=== PATIENT | male | born 1970 | race Caucasian/White ===

== ENCOUNTER 2020-01-24 16:47 | Emergency (ER) | payer BC, OTHER, SELFPAY ==
--- NOTE | ~2020-01-24 | XR_ITS ---
EXAMINATION: XR knee LT min 4V DATE: 01/24/2020 17:12 INDICATION: Left knee pain TECHNIQUE: Four views of the left knee were obtained. COMPARISON: None. FINDINGS: Alignment is normal. No fracture or osteochondral lesion. Joint spaces are normal with no e rosions. No joint effusion/synovitis. Soft tissues are unremarkable. IMPRESSION: 1. No acute osseous abnormality. Reviewed, dictated and finalized at location A.
[2020-01-24 17:15] VITALS: BP 140/82; PULSE 102; RESP 20; TEMP 37.6; O2SAT 97
--- NOTE | 2020-01-24 17:27 | ED.LOWEXIN ---
HPI - Extremity Injury (Lower) General Chief Complaint: Extremity Injury, Lower Stated Complaint: left knee pain Time Seen by Provider: 01/24/20 17:05 Source: patient Mode of arrival: ambulatory Limitations: no limitations History of Present Illness HPI Narrative: Leoncio Lozano is a 49 yo male with a PMH of HTN, low testosterone, low back pain, states that he fell and grandchildren's room a few hours ago and tweaked his left knee. Feels unstable, unable to lean forward without leg giving out Related Data Home Medications Medication Instructions Recorded Confirmed albuterol sulfate 2.5 mg INHALATION QID 10/12/19 01/24/20 clomiphene citrate 50 mg DAILY 10/12/19 01/24/20 hydrochlorothiazide 25 mg DAILY 10/12/19 01/24/20 lisinopril 30 mg DAILY 10/12/19 01/24/20 pantoprazole 40 mg PO DAILY 10/12/19 01/24/20 pregabalin 100 mg TID 10/12/19 01/24/20 aspirin 81 mg tablet,delayed 81 mg PO DAILY 10/17/19 01/24/20 release sildenafil 50 mg tablet 50 mg PO DAILY PRN 10/17/19 01/24/20 cyclobenzaprine 10 mg tablet 10 mg PO TID 11/26/19 01/24/20 hydrocodone 7.5 mg-acetaminophen 15 ml PO .Every Other Day. PRN ml 11/26/19 01/24/20 325 mg/15 mL oral solution Allergies Allergy/AdvReac Type Severity Reaction Status Date / Time melon Allergy Severe Swelling Verified 11/26/19 15:43 of Lip/Tongue/Throat walnut Allergy Severe Swelling Verified 11/26/19 15:43 of Lip/Tongue/Throat Review of Systems Review of Systems: Narrative: CONSTITUTIONAL: Denies fever, chills, sweats. EYES: Denies visual changes, redness, discharge. ENT: Denies rhinorrhea, congestion, sore throat, otalgia. CARDIOVASCULAR: Denies chest pain, palpitations, edema. RESPIRATORY: Denies dyspnea, wheezing, cough GASTROINTESTINAL: Denies abdominal pain, nausea, vomiting, diarrhea. GENITOURINARY: Denies dysuria, hematuria, abnormal discharge SKIN: Denies rash or itching. NEUROLOGIC: Denies numbness, or focal weakness. PSYCHIATRIC: Denies anxiety or depression. Lower extremity pain and instability PMFSH Past Medical History Medical History ADD (attention deficit disorder) Ankle fracture, right Asthma As a child but worsened after he started smoking Diastolic dysfunction Echocardiogram April 2019, with hyperdynamic left ventricle with EF of 79% DVT (deep venous thrombosis) 2005 following rotator cuff repair surgery Hepatic steatosis Noted on CT from November 2018, February 2019 an MRI from February 2019 Hypersomnolence Sleep study 2018 IBS (irritable bowel syndrome) Liver hemangioma CT and MRI February 2019 Low testosterone Obstructive sleep apnea Pneumonia Shingles Splenomegaly MRI 2019 Surgical History Surgical History H/O arthroscopic knee surgery Bilateral 2005 H/O repair of right rotator cuff Hx of tonsillectomy Social History Social History Social History: He served in the [employer]. He started working at [employer] September 2015 on the [employer] line. He lives at home with his and 2 small dogs. He has 5 children who are grown and relatively healthy. The patient has a 22 pack per year smoking history but still vapes. Smoking packs per day: 1 Smoking cigarettes per day: 20.0 Years smoked: 22 Smoking pack-years: 22.00 Smoking status: Former smoker Tobacco type: cigarettes Smokeless tobacco user: chewing tobacco Second hand tobacco smoke exposure: Yes Smoking end date: 02/07/15 Additional smoking assessment comments: still uses Juul Alcohol intake: never Substance use: never Gender identity (if verbalized by the patient): Male Spiritual care concerns: No Agree to blood products: Yes Comments At time of signature, I agree with nursing past medical, surgical, social and family history. There is no relevant family history pertinent to t
== END 2020-01-24 17:51 | disposition home or self-care (01) ==
PROVIDERS: Emergency Provider Nurse Practitioner; PCP Family Medicine
DX: S83.422A Sprain of lateral collateral ligament of left knee, initial encounter (principal); W19.XXXA Unspecified fall, initial encounter; J45.909 Unspecified asthma, uncomplicated; I10 Essential (primary) hypertension; G47.30 Sleep apnea, unspecified
CPT/HCPCS: 73564; 99213; G0463

== ENCOUNTER 2020-02-16 10:02 | Emergency (ER) | payer BC, OTHER, SELFPAY ==
--- NOTE | ~2020-02-16 | XR_ITS ---
EXAMINATION: XR chest 2V DATE: 02/16/2020 10:33 INDICATION: Cough and shortness of breath. TECHNIQUE: Frontal and lateral views of the chest were obtained. COMPARISON: Chest 2 views 09/25/2019, chest CT 09/26/2019 FINDINGS: The chest demonstrates clear lungs without pneumonia, pleural effusion, or pneumothorax. Th e heart size is normal. Epidural electrodes are noted. IMPRESSION: 1. No acute cardiopulmonary disease. Reviewed, dictated and finalized at location A.
[2020-02-16 10:14] VITALS: BP 108/65; PULSE 99; RESP 20; TEMP 37.3; O2SAT 99
--- NOTE | 2020-02-16 10:16 | ED.URI ---
HPI - URI/Sore Throat General Chief Complaint: Upper Respiratory Infection Stated Complaint: Breathing Problem Time Seen by Provider: 02/16/20 10:16 Source: patient and RN notes reviewed History of Present Illness HPI Narrative: Patient is a 49-year-old male that presents the urgent care with complaints of intermittent shortness of breath and mild cough. Patient states that he was seen a few months ago and treated for left upper pneumonia with a Z-Julius and steroids. Patient states that he feels that it did improve but he still has a mild nonproductive cough and some intermittent shortness of breath. 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 Denies any known fever, chest pain, nausea, vomiting. No other acute complaints. No acute distress noted. Patient read the plan of care. Related Data Home Medications Medication Instructions Recorded Confirmed albuterol sulfate 2.5 mg INHALATION QID 10/12/19 02/16/20 clomiphene citrate 50 mg DAILY 10/12/19 02/16/20 hydrochlorothiazide 25 mg DAILY 10/12/19 01/24/20 lisinopril 30 mg DAILY 10/12/19 01/24/20 pantoprazole 40 mg PO DAILY 10/12/19 01/24/20 pregabalin 100 mg TID 10/12/19 01/24/20 aspirin 81 mg tablet,delayed 81 mg PO DAILY 10/17/19 02/16/20 release sildenafil 50 mg tablet 50 mg PO DAILY PRN 10/17/19 01/24/20 cyclobenzaprine 10 mg tablet 10 mg PO TID 11/26/19 02/16/20 Allergies Allergy/AdvReac Type Severity Reaction Status Date / Time melon Allergy Severe Swelling Verified 11/26/19 15:43 of Lip/Tongue/Throat walnut Allergy Severe Swelling Verified 11/26/19 15:43 of Lip/Tongue/Throat Review of Systems Review of Systems: Narrative: CONSTITUTIONAL: Denies fever, chills, or sweats. EYES: Denies visual changes, redness, or discharge. ENT: Denies rhinorrhea, congestion, sore throat, or otalgia. CARDIOVASCULAR: Denies chest pain, palpitations, or edema. RESPIRATORY: Reports of mild nonproductive cough with acute on chronic intermittent dyspnea GASTROINTESTINAL: Denies abdominal pain, nausea, vomiting, or diarrhea. GENITOURINARY: Denies dysuria or hematuria. SKIN: Denies rash or itching. MUSCULOSKELETAL: Denies back pain, joint pain, or myalgia. NEUROLOGIC: Denies headache, numbness, or weakness. All other systems reviewed are negative, except as documented in HPI. FOR[facility]LY [facility] Social History Social History Social History: He served in the [employer]. He started working at [employer]In September 2015 on the [employer] line. He lives at home with his and 2 small dogs. He has 5 children who are grown and relatively healthy. The patient has a 22 pack per year smoking history but still vapes. Smoking packs per day: 1 Smoking cigarettes per day: 20.0 Years smoked: 22 Smoking pack-years: 22.00 Smoking status: Former smoker Tobacco type: cigarettes Smokeless tobacco user: chewing tobacco Second hand tobacco smoke exposure: Yes Smoking end date: 02/07/15 Additional smoking assessment comments: still uses Juul Alcohol intake: never Substance use: never Gender identity (if verbalized by the patient): Male Spiritual care concerns: No Agree to blood products: Yes Comments At the time of my signature, I reviewed and agree with the nursing past medical, surgical, social, and family history. There is no relevant family history pertinent to the patient complaint. Exam Narrative: Exam Narrative: GENERAL: This is a well-nourished, well-developed patient, in no apparent distress. HEAD: normocephalic, atraumatic. EYES: PERRL. Sclera clear/white. Vision is grossly intact. EARS: External ears normal, auditory canals clear and without drainage, TMs normal without perforation. Hearing grossly intact. NOSE: External nose normal with no obvious nasal discharge, nares without redness, no rhinorrhea. THROAT: Mucous membranes moist, posterior pharynx clear. Mild postnasal drainage NECK: Neck s
== END 2020-02-16 11:02 | disposition home or self-care (01) ==
PROVIDERS: Emergency Provider Nurse Practitioner Family; PCP Family Medicine
DX: J44.9 Chronic obstructive pulmonary disease, unspecified (principal); F17.220 Nicotine dependence, chewing tobacco, uncomplicated; Z79.82 Long term (current) use of aspirin; Z86.718 Personal history of other venous thrombosis and embolism; E78.00 Pure hypercholesterolemia, unspecified; I10 Essential (primary) hypertension; G47.30 Sleep apnea, unspecified; M19.042 Primary osteoarthritis, left hand; M19.041 Primary osteoarthritis, right hand; M19.072 Primary osteoarthritis, left ankle and foot; M19.071 Primary osteoarthritis, right ankle and foot; M19.022 Primary osteoarthritis, left elbow; M19.021 Primary osteoarthritis, right elbow; M17.0 Bilateral primary osteoarthritis of knee
CPT/HCPCS: 71046; 99213; G0463

== ENCOUNTER 2020-05-22 14:21 | Outpatient (CLI) | payer BC, OTHER, SELFPAY ==
--- NOTE | ~2020-05-22 | CT_ITS ---
EXAMINATION: CT knee LT wo con DATE: 05/22/2020 14:56 INDICATION: Left knee pain TECHNIQUE: High resolution computed tomography (CT) of the left knee was performed without intravenou s contrast. Additional sagittal and coronal reconstructions were performed. Automated exposure contro l and iterative reconstruction technique were employed. The dose-length product was 547.43 mGy-cm. COMPARISON: Left knee radiographs dated 01/24/2020 FINDINGS: Bone alignment is normal. No fracture. Small marginal osteophytes at the patellofemoral compartment w ith mild subarticular cystic change along the patellar apical ridge suggesting overlying high-grade c hondromalacia. There is mild joint space narrowing at the anterior aspect of the medial compartment. Joint space in the lateral compartment appears relatively preserved on nonweightbearing imaging howev er there is additional subarticular cystic change at the posteromedial aspect of the lateral tibial p lateau. Although evaluation of the soft tissues is significantly more limited than with MRI and not considere d diagnostic there appears to be a fluid signal intensity radial tear defect at the lateral side of t he posterior horn of the medial meniscus with some extrusion of the anterior horn and anterior body o f the medial meniscus. Moderate-sized left knee joint effusion. Prominent prepatellar subcutaneous ed jose. Visualized musculature in the distal thigh and proximal calf appear unremarkable. IMPRESSION: 1. Suggestion of a radial tear at the posterior horn of the medial meniscus however sensitivity and s pecificity are significantly lower with non arthrographicnonarthrographic CT than with MRI and evalua tion is not considered diagnostic. Consider preferably MRI for confirmation. CT arthrogram would be a second consideration if MRI is contraindicated for the patient. 2. At least mild tricompartmental osteoarthritis although severity of joint space narrowing can be un derestimated on nonweightbearing imaging. 3. Likely reactive moderate sized left knee joint effusion. Reviewed, dictated and finalized at location A. IMPRESSION: 1. Suggestion of a radial tear at the posterior horn of the medial meniscus how ever sensitivity and specificity are significantly lower with non arthrographic nonarthrographic CT than with MRI and evaluation is not considered diagnostic. Consider preferably MRI for confirmation. CT arthrogram would be a second consi deration if MRI is contraindicated for the patient. 2. At least mild tricompartmental osteoarthritis although severity of joint spa ce narrowing can be underestimated on nonweightbearing imaging. 3. Likely reactive moderate sized left knee joint effusion.
== END 2020-05-22 14:22 | disposition home or self-care (01) ==
LOC: ANHIMG 14:28
PROVIDERS: PCP Family Medicine; Visit Provider Family Medicine
DX: M25.562 Pain in left knee (principal); M17.12 Unilateral primary osteoarthritis, left knee; M25.462 Effusion, left knee
CPT/HCPCS: 73700

== ENCOUNTER 2020-06-12 14:09 | Outpatient (CLI) | payer BC, OTHER, SELFPAY ==
[2020-06-12 14:49] LABS: Anion Gap 12.3 mmol/L (7-16); Blood Urea Nitrogen 31 mg/dL (9-20); Calcium 9.4 mg/dL (8.4-10.2); Carbon Dioxide 28 mmol/L (22-30); Chloride 99 mmol/L (98-107); Estimated Glomerular Filt Rate > 60; Glucose 104 mg/dL (75-110); Potassium 4.3 mmol/L (3.4-5.0); Sodium 135 mmol/L (137-145)
== END 2020-06-12 14:10 | disposition home or self-care (01) ==
PROVIDERS: PCP Family Medicine; Visit Provider Anesthesiology
DX: Z01.818 Encounter for other preprocedural examination (principal); Z79.899 Other long term (current) drug therapy
CPT/HCPCS: 36415; 80048

== ENCOUNTER 2020-06-16 08:21 | Outpatient (CLI) | payer BC, OTHER, SELFPAY ==
[2020-06-16 18:20] LABS: SARS-CoV-2 RNA PCR Negative
== END 2020-06-16 08:22 | disposition home or self-care (01) ==
LOC: ANHCOVIDDT 08:22
PROVIDERS: PCP Family Medicine; Visit Provider Orthopaedic Surgery
DX: Z01.812 Encounter for preprocedural laboratory examination (principal); Z11.59 Encounter for screening for other viral diseases
CPT/HCPCS: 87635; C9803; U0003

== ENCOUNTER 2020-06-17 01:42 | Day surgery (SDC) | payer BC, OTHER, SELFPAY ==
[2020-06-06 09:58] VITALS: BMI 38.7
--- NOTE | 2020-06-17 10:01 | WPDHPUPDATE1 ---
History and Physical Update Update Date/Time: 06/17/20 10:01 History and Physical has been reviewed, including an updated exam of the patient. There are NO changes in the patient's condition. Risks, benefits, and alternatives have been discussed and questions answered. Patient agrees to proceed with procedure.
[2020-06-17] MEDS: ACETAMINOPHEN 500 MG TABLET 1000 MG PO (11:00)
[2020-06-17 11:05] VITALS: BP 128/83; PULSE 90; RESP 20; TEMP 36.5; O2SAT 97
[2020-06-17] MEDS: LACTATED RINGERS 1,000 ML 30 ML IV CONT (11:25)
[2020-06-17] MEDS: KETOROLAC 15 MG/ML VIAL (*BKC) IV PUSH (11:37)
--- NOTE | 2020-06-17 12:11 | WPDANESEPPF ---
Anes - Initial Pre Proc Eval Procedure: Operation Date: 06/17/20 13:00 Proposed Procedures p Left Knee Arthroscopy Partial Medial Meniscectomy - Quinn Rowland MD Date/Time: 06/17/20 12:11 Surgeon: Quinn Rowland MD Pre Op Diagnosis: left knee medial meniscus tear Patient Data Age: 50 Gender: M Height: 5 ft 6 in Weight: 107 kg Last Vital Signs Temp 36.5 C 06/17/20 11:05 Pulse 90 06/17/20 11:05 Resp 20 06/17/20 11:05 BP 128/83 06/17/20 11:05 Pulse Ox 97 06/17/20 11:05 Allergies Allergy/AdvReac Type Severity Reaction Status Date / Time melon Allergy Severe Swelling Verified 06/06/20 09:55 of Lip/Tongue/Throat walnut Allergy Severe Swelling Verified 06/06/20 09:55 of Lip/Tongue/Throat Home Medications Medication Instructions Recorded Confirmed Type clomiphene citrate 50 mg PO DAILY 10/12/19 06/17/20 History pantoprazole 40 mg PO DAILY 10/12/19 06/17/20 History pregabalin 100 mg TID 10/12/19 06/17/20 History aspirin 81 mg tablet,delayed 81 mg PO DAILY 10/17/19 06/17/20 History release sildenafil 50 mg tablet 50 mg PO DAILY PRN 10/17/19 06/17/20 History albuterol sulfate 2.5 mg INHALATION QID PRN 02/29/20 06/17/20 History ibuprofen 800 mg tablet 800 mg PO TID 02/29/20 06/17/20 History lisinopril 40 mg tablet 40 mg PO DAILY #90 tablet 02/29/20 06/17/20 Rx hydrochlorothiazide 25 mg tablet 25 mg PO DAILY #90 tablet 03/17/20 06/17/20 Rx nortriptyline 10 mg capsule 10 mg PO HS 06/02/20 06/17/20 History albuterol sulfate [ProAir HFA] 2 puff INHALATION QID PRN 06/06/20 06/17/20 History scckqeqrliu-ejsxmdkte-yntarnhv 1 inhalation INHALATION QPM 06/06/20 06/17/20 History [Trelegy Ellipta] hydrocodone-acetaminophen 0.5 - 1 tablet PO Q6H PRN 06/06/20 06/17/20 History multivitamin 1 tablet PO DAILY 06/06/20 06/17/20 History cyclobenzaprine 10 mg tablet 10 mg PO TID PRN #90 tablet 06/17/20 06/17/20 Rx dextroamphetamine-amphetamine ER 20 mg PO DAILY #30 cap 06/17/20 06/17/20 Rx 20 mg 24hr capsule,extend release Patient hx anesthesia problems: none Family hx anesthesia problems: none PMFSH Past Medical History Medical History Acute exacerbation of chronic obstructive pulmonary disease Acute respiratory failure with hypoxia and hypercapnia ADD (attention deficit disorder) Ankle fracture, right Asthma As a child but worsened after he started smoking Asthma-COPD overlap syndrome Community acquired pneumonia Diastolic dysfunction Echocardiogram April 2019, with hyperdynamic left ventricle with EF of 79% DVT (deep venous thrombosis) 2005 following rotator cuff repair surgery Elevated troponin Hepatic steatosis Noted on CT from November 2018, February 2019 an MRI from February 2019 Hypersomnolence Sleep study 2019 Hypertension IBS (irritable bowel syndrome) Liver hemangioma CT and MRI February 2019 Low testosterone Obstructive sleep apnea Pneumonia Presence of neurostimulator in back Recurrent infections Shingles Splenomegaly MRI 2019 Surgical History Surgical History H/O arthroscopic knee surgery Bilateral 2005 H/O repair of right rotator cuff Hx of tonsillectomy Family History Family History Father Diabetes mellitus Family history of arthritis Mother COPD (chronic obstructive pulmonary disease) Social History Social History Social History: He served in the [employer]. He started working at [employer] September 2015 on the [employer] line. He lives at home with his and 2 small dogs. He has 5 children who are grown and relatively healthy. The patient has a 22 pack per year smoking history but still vapes. Smoking packs per day: 1 Smoking cigarettes per day: 20.0 Years smoked: 22 Smoking pack-years: 22.00 Smoking status: Fo
[2020-06-17] MEDS: ceFAZolin 2 GM/D5W 50 ML 2 GM/50 ML BAG IVPB (12:24)
[2020-06-17] MEDS: BUPIVACAINE/EPINEPHRINE 0.5% 30 ML VIAL INFILTRATE (12:41)
[2020-06-17 13:30] VITALS: BP 113/69; PULSE 99; RESP 21; TEMP 37.3; O2SAT 93
[2020-06-17 13:45] VITALS: BP 108/71; PULSE 87; RESP 18; O2SAT 96
[2020-06-17 14:00] VITALS: BP 103/63; PULSE 84; RESP 20; O2SAT 94
[2020-06-17 14:14] VITALS: BP 116/72; PULSE 79; RESP 20
[2020-06-17 14:40] VITALS: BP 110/70; PULSE 73; RESP 16
--- NOTE | 2020-06-17 15:28 | PM.PROC ---
Procedure Note - Detailed Date of procedure: 06/17/20 Pre-op diagnosis: left knee medial meniscus tear Degenerative medial meniscus tear. Post-op diagnosis: same Procedure performed: Arthroscopic partial medial meniscectomy. Description of procedure: Extensive degenerative tear of medial meniscus. Subtotal meniscectomy performed. Large area of exposed bone on the medial femur. Tibia with small areas exposed medially. Patellofemoral joint with minor changes; trochlea grade 1/2 central fissure and patella small area 1/2. Lateral compartment appeared normal. ACL intact. Anesthesia: GETA Surgeon: Quinn Rowland MD Estimated blood loss (mL): 5 Complications: None Condition: stable Findings: Procedure Details: The patient was identified and the surgical site confirmed and signed in the preoperative holding area. Antibiotics were started per protocol. She was brought to the operative room and transferred to the OR table. A general anesthetic was administered. Supine position with the operative lower extremity position in the leg schilling after placement of a well padded tourniquet. The leg support was lowered and the contralateral limb was supported with a soft bolster. The knee was prepped and draped in the usual sterile fashion. A time-out was performed. The portal sites were marked and infiltrated with 0.5% Marcaine 20 mL. The limb was exsanguinated and the tourniquet inflated to 300 mL Hg. Standard inferolateral and inferomedial portals were established. Inflow was obtained with the saline pump. The camera was introduced. Diagnostic inspection of the joint was accomplished. The meniscus was debrided with the arthroscopic shaver and punches until stable. The arthroscopic instruments were removed. The tourniquet released and wounds closed with subcutaneous 3-0 Monocryl absorbable suture. Steri strips and a sterile dressing were applied. A light elastic wrap was placed. The patient was extubated and brought to the recovery room in stable condition.
== END 2020-06-17 14:50 | disposition home or self-care (01) ==
PROVIDERS: PCP Family Medicine; Visit Provider Orthopaedic Surgery
PROC: (CPT 29870; principal; 2020-06-17 13:00)
DX: M23.332 Other meniscus derangements, other medial meniscus, left knee (principal); J44.9 Chronic obstructive pulmonary disease, unspecified; K76.0 Fatty (change of) liver, not elsewhere classified; G47.33 Obstructive sleep apnea (adult) (pediatric); K58.9 Irritable bowel syndrome, unspecified; I11.0 Hypertensive heart disease with heart failure; I50.30 Unspecified diastolic (congestive) heart failure; F98.8 Other specified behavioral and emotional disorders with onset usually occurring in childhood and adolescence; Z86.718 Personal history of other venous thrombosis and embolism; Z79.82 Long term (current) use of aspirin; F17.220 Nicotine dependence, chewing tobacco, uncomplicated; E66.9 Obesity, unspecified; Z68.38 Body mass index [BMI] 38.0-38.9, adult
CPT/HCPCS: 29881; A9270; J0690; J1100; J1885; J2250; J2405; J2704; J3010; J7120

== ENCOUNTER 2020-09-10 15:01 | Outpatient (CLI) | payer BC, OTHER, SELFPAY ==
--- NOTE | 2020-09-10 | ECG_ITS ---
Measurements Intervals [place] Rate: 94 P: 226 TX: 361 QRS: 64 QRSD: 93 T: 52 QT: 336 QTc: 421 Interpretive Statements SINUS RHYTHM MINIMAL Q WAVES- INFERIOR LEADS BASELINE WANDER- V1 BORDERLINE ECG Electronically Signed On 09-10-2020 17:46:24 PULMONARY FUNCTION TECHNICIAN by Scotty Prieto D.O.
[2020-09-10 15:52] LABS: Hematocrit 45.7 % (42.0-52.0); Hemoglobin 15.1 g/dL (14.0-18.0)
[2020-09-10 16:04] LABS: Albumin Level 4.5 g/dL (3.5-5.1); Estimated Glomerular Filt Rate > 60; Glucose 151 mg/dL (75-110)
[2020-09-10 16:34] LABS: Urine Cotinine POSITIVE
[2020-09-10 18:45] LABS: Hemoglobin A1C 5.7 % (<5.7)
== END 2020-09-10 15:02 | disposition home or self-care (01) ==
LOC: ANHLAB 15:03
PROVIDERS: PCP Family Medicine; Visit Provider Orthopaedic Surgery
DX: Z01.818 Encounter for other preprocedural examination (principal); M17.12 Unilateral primary osteoarthritis, left knee; J44.9 Chronic obstructive pulmonary disease, unspecified; I10 Essential (primary) hypertension; G47.33 Obstructive sleep apnea (adult) (pediatric)
CPT/HCPCS: 80307; 82040; 82565; 82947; 83036; 85014; 85018; 93005

== ENCOUNTER 2020-10-14 13:54 | Outpatient (CLI) | payer BC, OTHER, SELFPAY ==
[2020-10-14 15:09] LABS: Basophils Percent Auto 0.6 % (0.2-1.2); Eosinophils Absolute Auto 0.3 K/mm3 (0-0.3); Eosinophils Percent Auto 3.5 % (0-4.4); Hematocrit 42.8 % (42.0-52.0); Hemoglobin 14.1 g/dL (14.0-18.0); Immature Granulocyte Absolute 0.06 K/mm3 (0.00-0.031); Immature Granulocyte Percent A 0.8 % (0-0.5); Lymphocytes Percent Auto 32.5 % (18.3-44.2); Mean Corpuscular HGB Conc 32.9 g/dl (32-36); Mean Corpuscular Hemoglobin 28.7 pg (26-34); Mean Corpuscular Volume 87.2 fl (80-100); Monocytes Absolute Auto 0.7 K/mm3 (0.1-0.6); Monocytes Percent Auto 10.5 % (2.6-8.5); Neutrophils Absolute Auto 3.7 K/mm3 (1.3-6.7); Neutrophils Percent Auto 52.1 % (45.5-73.1); Platelet Count Result 236 k/mm3 (150-375); Red Blood Count 4.91 M/mm3 (4.6-6.20); Red Cell Distribution Width 13.6 % (11.5-14.5); White Blood Count 7.1 K/mm3 (4.5-10.0)
[2020-10-14 15:21] LABS: Anion Gap 6 mmol/L (8-16); Blood Urea Nitrogen 29 mg/dL (9-20); Calcium 9.5 mg/dL (8.4-10.2); Carbon Dioxide 33 mmol/L (22-30); Chloride 100 mmol/L (98-107); Estimated Glomerular Filt Rate 58; Glucose 92 mg/dL (75-110); Potassium 4.7 mmol/L (3.4-5.0); Sodium 139 mmol/L (137-145)
== END 2020-10-14 13:55 | disposition home or self-care (01) ==
LOC: ANHSURGERY 13:56
PROVIDERS: Anesthesiology; PCP Family Medicine; Visit Provider Orthopaedic Surgery
DX: M17.12 Unilateral primary osteoarthritis, left knee (principal); Z51.81 Encounter for therapeutic drug level monitoring; Z79.899 Other long term (current) drug therapy
CPT/HCPCS: 36415; 80048; 85025

== ENCOUNTER 2020-10-25 00:39 | Outpatient (CLI) | payer BC, OTHER, SELFPAY ==
[2020-10-25 18:59] LABS: SARS-CoV-2 RNA PCR Negative
== END 2020-10-25 00:40 | disposition home or self-care (01) ==
LOC: ANHCOVIDDT 00:39
PROVIDERS: PCP Family Medicine; Visit Provider Orthopaedic Surgery
DX: Z01.812 Encounter for preprocedural laboratory examination (principal); Z20.828 Contact with and (suspected) exposure to other viral communicable diseases
CPT/HCPCS: 87635; C9803; U0003

== ENCOUNTER 2020-10-28 01:48 | Day surgery (SDC) | payer BC, OTHER, SELFPAY ==
[2020-10-14 15:00] VITALS: BP 146/80; PULSE 84; RESP 22; TEMP 36.2; O2SAT 94; BMI 39.9
--- NOTE | 2020-10-27 11:57 | WPDANESEPPF ---
Anes - Initial Pre Proc Eval Procedure: Operation Date: 10/28/20 07:30 Proposed Procedures p Left Partial Knee Arthroplasty - Quinn Rowland MD Date/Time: 10/27/20 11:57 Surgeon: Quinn Rowland MD Pre Op Diagnosis: primary OA left knee Patient Data Age: 50 Gender: M Height: 1.68 m Weight: 112.3 kg Last Vital Signs Temp 36.2 C L 10/14/20 15:00 Pulse 84 10/14/20 15:00 Resp 22 H 10/14/20 15:00 BP 146/80 H 10/14/20 15:00 Pulse Ox 94 10/14/20 15:00 Allergies Allergy/AdvReac Type Severity Reaction Status Date / Time melon Allergy Severe Swelling Verified 10/28/20 06:02 of Lip/Tongue/Throat walnut Allergy Severe Swelling Verified 10/28/20 06:02 of Lip/Tongue/Throat Home Medications Medication Instructions Recorded Confirmed Type clomiphene citrate 50 mg PO DAILY 10/12/19 10/28/20 History pantoprazole 40 mg PO DAILY 10/12/19 10/28/20 History pregabalin 100 mg TID 10/12/19 10/28/20 History aspirin 81 mg tablet,delayed 81 mg PO DAILY 10/17/19 10/28/20 History release sildenafil 50 mg tablet 50 mg PO DAILY PRN 10/17/19 10/14/20 History ibuprofen 800 mg tablet 800 mg PO TID 02/29/20 10/28/20 History lisinopril 40 mg tablet 40 mg PO DAILY #90 tablet 02/29/20 10/28/20 Rx hydrochlorothiazide 25 mg tablet 25 mg PO DAILY #90 tablet 03/17/20 10/28/20 Rx hydrocodone-acetaminophen 0.5 - 1 tablet PO Q6H PRN 06/06/20 10/28/20 History multivitamin 1 tablet PO DAILY 06/06/20 10/28/20 History cyclobenzaprine 10 mg tablet 10 mg PO TID PRN #90 tablet 06/17/20 10/28/20 Rx fluticasone fur. 100 mcg-umeclid 1 inhalation INHALATION Q24H #60 06/30/20 10/28/20 Rx 62.5 mcg-vilant 25 mcg each inhalat.powder albuterol sulfate 2.5 mg INHALATION QID PRN #15 ml 07/01/20 10/14/20 Rx albuterol sulfate 90 mcg/actuation 2 puff INHALATION QID PRN #8.5 gm 08/01/20 10/14/20 Rx aerosol inhaler dextroamphetamine-amphetamine ER 20 mg PO DAILY #30 cap 10/06/20 10/28/20 Rx 20 mg 24hr capsule,extend release acetaminophen [Tylenol Ex Str 500 mg PO QID PRN 10/14/20 10/28/20 History Rapid Release] cetirizine [Zyrtec] 25 mg PO DAILY 10/14/20 10/28/20 History nortriptyline 25 mg PO HS 10/14/20 10/28/20 History Other Studies: Exam Date: 09/26/2019 9:52 AM Exam Location: [facility] Pulmonary Exam Room: [facility] Patient Status: Inpatient Admit Date: 09/25/2019 Staff Ordering Physician: Alma Pizarro PA-C Roof Designer: Brynn Mcgrath RCS Attending Provider: Alma Pizarro PA-C Referring Physician: Moira IRAHETA; Exam Type: CA echo doppler color flow Study Info Indications - elevated trops sob Complete two-dimensional, color flow and Doppler transthoracic echocardiogram is performed. Summary 1. Left ventricular chamber dimension is normal. 2. Left ventricular systolic function is normal, estimated at 60-65%. 3. The left ventricular diastolic function is grade I diastolic dysfunction. 4. E/e' 14 is mildly elevated. 5. There is trace tricuspid valve regurgitation. 6. No pulmonary hypertension, estimated pulmonary arterial systolic pressure is 38 mmHg. Patient hx anesthesia problems: none Family hx anesthesia problems: none [facility] Past Medical History Medical History Acute exacerbation of chronic obstructive pulmonary disease Acute respiratory failure with hypoxia and hypercapnia ADD (attention deficit disorder) Ankle fracture, right Asthma As a child but worsened after he started smoking Asthma-COPD overlap syndrome Community acquired pneumonia Diastolic dysfunction Echocardiogram April 2019, with hyperdynamic left ventricle with EF of 79% DVT (deep venous thrombosis) 2005 following rotator cuff repair surgery Elevated troponin Hepatic steatosis Noted on CT from November 2018, February 2019 an MRI from February 2019 Hypersomnolence Sleep
[2020-10-28] VITALS (9 sets, daily range): BP systolic 102–122; BP diastolic 55–96; PULSE 86–101; RESP 12–24; TEMP 36.4; O2SAT 93–98
--- NOTE | ~2020-10-28 | XR_ITS ---
EXAMINATION: XR knee LT 2V DATE: 10/28/2020 09:26 INDICATION: Left knee arthroplasty. Postop. TECHNIQUE: 2 views of left knee were obtained. COMPARISON: Left knee radiographs 09/26 FINDINGS: There is a medial compartment arthroplasty in near-anatomic alignment. No fracture. There i s mild osteoarthritis of lateral and patellofemoral compartments. There is gas in the soft tissues, c onsistent with recent surgery. IMPRESSION: 1. Medial compartment arthroplasty in near-anatomic alignment. 2. Mild osteoarthritis of lateral and patellofemoral compartments. Reviewed, dictated and finalized at location A. [employer]ATE SALES MANAGER
[2020-10-28] MEDS: LACTATED RINGERS 1,000 ML 30 ML IV CONT ×2 (06:31→09:16)
[2020-10-28] MEDS: ACETAMINOPHEN 500 MG TABLET 1000 MG PO (06:31)
[2020-10-28] MEDS: TRANEXAMIC ACID 1,000MG/ISO100 1,000 MG/100 ML BAG 200 MG IVPB (07:07)
--- NOTE | 2020-10-28 07:20 | WPDHPUPDATE1 ---
History and Physical Update Update Date/Time: 10/28/20 07:20 History and Physical has been reviewed, including an updated exam of the patient. There are NO changes in the patient's condition. Risks, benefits, and alternatives have been discussed and questions answered. Patient agrees to proceed with procedure.
[2020-10-28] MEDS: ceFAZolin 2 GM/D5W 50 ML 2 GM/50 ML BAG IVPB (07:28)
--- NOTE | 2020-10-28 07:29 | WPDANESPNB ---
Anes - Peripheral Nerve Block Date/Time: 10/28/20 07:29 I have discussed with the patient/family/POA the placement of a peripheral nerve block for post-operative pain management, including associated risks, benefits, complications, and side effects. Alternative methods of post-operative analgesia were detailed. Questions were solicited and answers provided to the satisfaction of the patient/family/POA. Time-Out: A pre-procedural Time-Out was completed immediately before starting the procedure and confirmed: Patient Identification, Site, Procedure, Patient Position and the Availability of Requisite Equipment. Clinical Indications: Acute post-operative pain management requested by the operative surgeon. Nerve Block Insertion Note Anes-nerve block: adductor canal left Patient position: supine Skin prep: chlorhexidine Needle: 22 gauge, stimulating, insulated echogenic needle. Needle length: 80 mm Technique: ultrasound Technique comment: in plane Injectate: bupivacaine 0.25% with epi 5 mcg/ml (30cc) Observations: tolerated well Complications: none Procedure start time:: 720 Procedure end time:: 725
[2020-10-28] MEDS: GENTAMICIN BONE CEMENT REFOBACIN 1 EACH TOPICAL (07:43)
--- NOTE | 2020-10-28 09:19 | P.OP_ITS ---
Procedure Note - Detailed Date of procedure: 10/28/20 Pre-op diagnosis: primary OA left knee Post-op diagnosis: same Procedure performed: Partial knee arthroplasty, medial compartment. Description of procedure: Bone quality was very good. Grade 4 changes confirmed both on the tibia and femur with large areas of exposed bone. The ACL was intact. Grade 1 changes at the trochlea cartilage. Medial femoral distal morphology was somewhat wide but curved lateral. Thus the shorter size 2 implant fit ideally. Flexion gap measured 9 mm in extension 11 mm. The -2 cutting guide was used for the 5 mm distal resection. Implants: [employer] X3 system tibial insert size # 3, 9 mm thickness, femoral component size 2. Tibial base tibial base plate size 3. Anesthesia: GETA and regional (subsartorial block.) Surgeon: Quinn Rowland MD Territory Sales Professional: Brittnee Ruiz PA-C Estimated blood loss (mL): 50 Drains: No Complications: None Condition: stable Disposition: same day Findings: Physician transportation assistant required for surgery; including patient positioning, draping, tissue retraction, maintaining instrument position, cement removal, wound closure, and dressing placement. Operative details: The patient was given a general anesthetic. Preoperative antibiotics were given. The knee was prepped and draped in the usual sterile fashion. A longitudinal incision was created along the medial aspect of the patellar tendon. A minimally invasive optimized mid vastus approach was completed. No medial release was taken. The external alignment guide was used to cut the tibia with anatomic posterior slope. A 4 millimeter resection was taken. The spacer block technique was utilized to measure flexion and extension gaps after the osteophytes were removed. The difference was used to calculate the distal resection. The distal cutting block was utilized to cut the distal femur. The AP and chamfer block was utilized for this last cuts. The femur and tibia were sized. Range of motion and gap balancing was assessed. This was tested with the 1.5 millimeter spacer. The bony surfaces were cleaned with lavaged. Lug holes were drilled. The real components were cemented into position. Excess cement was carefully removed. The tourniquet was released. Meticulous hemostasis was maintained. The wound was closed with interrupted 1 Vicryl suture followed by a running 0 Quill suture and 2-0 Quill suture. Steri- Strips are placed in the skin the patient was extubated and brought to recovery room in stable condition. There were no complications.
--- NOTE | 2020-10-28 10:41 | SUR.PHASEII ---
LM PHYSICAL THERAPIST CALLED TO WORK WITH PATIENT.
--- NOTE | 2020-10-28 11:13 | SUR.PHASEII ---
LM FROM PHYSICAL THERAPY HERE TO WORK WITH PATIENT.
--- NOTE | 2020-10-28 11:27 | SUR.PHASEII ---
PATIENT EATING LUNCH.
--- NOTE | 2020-10-28 12:27 | SUR.PHASEII ---
DR. TENA FROM ANESTHESIA CLEARED PT FOR DISCHARGE.
== END 2020-10-28 12:35 | disposition home or self-care (01) ==
PROVIDERS: PCP Family Medicine; Visit Provider Orthopaedic Surgery
PROC: (CPT 27446; principal; 2020-10-28 07:30)
DX: M17.12 Unilateral primary osteoarthritis, left knee (principal); G89.18 Other acute postprocedural pain; J44.9 Chronic obstructive pulmonary disease, unspecified; I10 Essential (primary) hypertension; K76.0 Fatty (change of) liver, not elsewhere classified; F98.8 Other specified behavioral and emotional disorders with onset usually occurring in childhood and adolescence; K58.9 Irritable bowel syndrome, unspecified; G47.33 Obstructive sleep apnea (adult) (pediatric); Z86.718 Personal history of other venous thrombosis and embolism; F17.290 Nicotine dependence, other tobacco product, uncomplicated; E66.9 Obesity, unspecified; Z68.38 Body mass index [BMI] 38.0-38.9, adult
CPT/HCPCS: 27446; 64447; 73560; 97161; A9270; C1713; C1776; J0171; J0690; J1100; J1885; J2250; J2270; J2405; J2704; J2795; J3010; J7120

== ENCOUNTER 2021-05-21 06:34 | Outpatient (CLI) | payer BC, OTHER, SELFPAY ==
[2021-05-21 07:42] LABS: Anion Gap 9 mmol/L (8-16); Blood Urea Nitrogen 19 mg/dL (9-20); Calcium 9.5 mg/dL (8.4-10.2); Carbon Dioxide 27 mmol/L (22-30); Chloride 104 mmol/L (98-107); Cholesterol 124 mg/dL (0-200); Estimated Glomerular Filt Rate > 60; Glucose 98 mg/dL (75-110); HDL Direct 27 mg/dL; Potassium 4.3 mmol/L (3.4-5.0); Sodium 140 mmol/L (137-145); Triglycerides 129 mg/dL (<150)
[2021-05-21 07:53] LABS: LDL Cholesterol Direct 66 mg/dL
[2021-05-21 15:34] LABS: Add Urine Microscopic? YES; Appearance Urine Clear (Clear); Bilirubin Urine Negative (Negative); Blood Urine 1+ (Negative); Color Urine Yellow (Yellow); Glucose Urine UA Negative (Negative); Ketones Urine Negative (Negative); Leukocyte Esterase Ur Negative LEU/UL (NEGATIVE); Mucus Urine Rare /lpf; Nitrate Urine Negative (Negative); Protein Urine Negative (Negative); RBC Urine 0-2 /hpf (0-2); Specific Grav Ur 1.026 (1.001-1.035); Urobilinogen Urine Negative mg/dL (<2.0); WBC Urine 0-3 /hpf (0-3)
== END 2021-05-21 06:35 | disposition home or self-care (01) ==
PROVIDERS: PCP Family Medicine; Referring Provider Physician Assistant; Visit Provider Family Medicine
DX: I12.9 Hypertensive chronic kidney disease with stage 1 through stage 4 chronic kidney disease, or unspecified chronic kidney disease (principal); N18.30 Chronic kidney disease, stage 3 unspecified; E78.2 Mixed hyperlipidemia; R79.89 Other specified abnormal findings of blood chemistry
CPT/HCPCS: 36415; 80048; 80061; 81001

== ENCOUNTER 2021-08-29 06:47 | Outpatient (CLI) | payer BC, OTHER, SELFPAY ==
[2021-08-29 08:14] LABS: Hemoglobin A1C 6.1 % (<5.7)
== END 2021-08-29 06:48 | disposition home or self-care (01) ==
LOC: ANHLAB 06:50
PROVIDERS: PCP Family Medicine; Visit Provider Physician Assistant
DX: E78.5 Hyperlipidemia, unspecified (principal); I10 Essential (primary) hypertension; R73.09 Other abnormal glucose
CPT/HCPCS: 36415; 83036

== ENCOUNTER 2021-09-30 15:37 | Outpatient (CLI) | payer BC, OTHER, SELFPAY | END 2021-09-30 15:38 | disposition home or self-care (01) | LOC: ANHLAB 15:41 | PROVIDERS: PCP Family Medicine; Visit Provider Physician Assistant | DX: E78.5 Hyperlipidemia, unspecified (principal); I10 Essential (primary) hypertension | CPT/HCPCS: 36415; 80053; 80061 ==

== ENCOUNTER 2022-07-20 15:34 | Outpatient (CLI) | payer BC, OTHER, SELFPAY ==
[2022-07-20 16:41] LABS: Hematocrit 47.7 % (42.0-52.0)
[2022-07-20 17:23] LABS: Prostate Specific Antigen 0.4 ng/mL (< OR = 4.0)
[2022-07-25 03:12] LABS: Testosterone Free 117.6 pg/mL (35.0-155.0); Testosterone Total 484 ng/dL (250-1100)
[2022-07-27 11:49] LABS: Estradiol, Ultrasensitive 38 pg/mL (< OR = 29)
== END 2022-07-20 15:35 | disposition home or self-care (01) ==
LOC: ANHLAB 15:52
PROVIDERS: PCP Family Medicine
DX: Z12.5 Encounter for screening for malignant neoplasm of prostate (principal); E29.1 Testicular hypofunction
CPT/HCPCS: 36415; 82670; 84153; 84402; 84403; 85014; 85018

== ENCOUNTER 2022-10-07 12:56 | Outpatient (CLI) | payer BC, OTHER, SELFPAY ==
[2022-10-07 15:52] LABS: Influenza A QL RT-PCR Negative (Negative); Influenza B QL RT-PCR Negative (Negative); SARS-CoV-2 RNA PCR Positive
== END 2022-10-07 12:57 | disposition home or self-care (01) ==
LOC: ANHLAB 12:59
PROVIDERS: PCP Family Medicine; Visit Provider Physician Assistant
DX: U07.1 COVID-19 (principal); R50.9 Fever, unspecified
CPT/HCPCS: 87636

== ENCOUNTER → 2023-01-22 07:28 | Outpatient (CLI) | payer BC, OTHER, SELFPAY ==
--- NOTE | ~2023-01-22 | US_ITS ---
US abdomen complete EXAMINATION: US Abdomen Complete INDICATION: Elevated liver function tests. PROCEDURE: Realtime High Resolution abdomen ultrasound. COMPARISON: No prior studies for comparison FINDINGS: Gallbladder within normal limits. No gallstones, pericholecystic fluid, gallbladder wall t hickening or biliary dilatation. Common bile duct measures 6 mm. Liver echotexture is increased, consistent with fatty infiltration. No discrete hepatic mass. There i s focal fatty sparing of the liver near the gallbladder fossa.. Pancreas is obscured by bowel gas. Sp ary is enlarged measuring 14.8 cm. Renal echotexture is within normal limits bilaterally without hyd ronephrosis, contour deforming mass or renal stone. Right kidney measures 12.1 cm. Left kidney measur es 11.8 cm. There is a right renal cyst measuring 9 mm. Visualized aspects of the aorta and IVC are within normal limits. Portal vein is patent. No sonograph ic Westfall's sign indicated by the technologist. IMPRESSION: 1: Splenomegaly. 2: Hepatic steatosis. Reviewed, dictated and finalized at location A.
== END ==
PROVIDERS: PCP Family Medicine; Visit Provider Physician Assistant
DX: R74.8 Abnormal levels of other serum enzymes (principal); R16.1 Splenomegaly, not elsewhere classified; K76.0 Fatty (change of) liver, not elsewhere classified; K83.1 Obstruction of bile duct
CPT/HCPCS: 76700

== ENCOUNTER 2023-02-16 11:23 | Outpatient (CLI) | payer BC, OTHER, SELFPAY ==
[2023-02-16 11:51] LABS: Hematocrit 51.1 % (42.0-52.0); Hemoglobin 17.3 g/dL (14.0-18.0)
[2023-02-16 12:34] LABS: Prostate Specific Antigen 0.4 ng/mL (< OR = 4.0)
[2023-02-20 15:32] LABS: Testosterone Free 126.8 pg/mL (35.0-155.0); Testosterone Total 556 ng/dL (250-1100)
== END 2023-02-16 11:24 | disposition home or self-care (01) ==
LOC: ANHLAB 11:26
PROVIDERS: PCP Family Medicine; Visit Provider Nurse Practitioner
DX: E29.1 Testicular hypofunction (principal)
CPT/HCPCS: 36415; 84153; 84402; 84403; 85014; 85018

== ENCOUNTER 2023-09-01 15:27 | Outpatient (CLI) | payer BC, OTHER, SELFPAY ==
--- NOTE | 2023-09-01 15:52 | ECG_ITS ---
Measurements Intervals [place] Rate: 86 P: 36 MD: 137 QRS: 61 QRSD: 101 T: 52 QT: 351 QTc: 420 Interpretive Statements PROBABLE NORMAL SINUS RHYTHM s Q WAVE IN II/aVFPROMINENT R WAVE IN V1/ SIGNIFICANT BASELINE ARTIFACT IS PRESENT COMPARED TO ECG 09/10/2020 15:46:03 NO SIGNIFICANT CHANGES Electronically Signed On 09-01-2023 19:57:58 CDT by Nery Magdaleno M.D.
== END 2023-09-01 15:28 | disposition home or self-care (01) ==
LOC: ANHCARD 15:30
PROVIDERS: PCP Family Medicine; Visit Provider Family Medicine
DX: I10 Essential (primary) hypertension (principal)
CPT/HCPCS: 93005

== ENCOUNTER 2024-04-11 15:08 | Outpatient (CLI) | payer BC, OTHER, SELFPAY ==
[2024-04-11 16:12] LABS: Influenza A QL RT-PCR Negative (Negative); Influenza B QL RT-PCR Negative (Negative); RSV RNA, RT-PCR Negative (Negative); SARS-CoV-2 RNA PCR Negative (Negative)
== END 2024-04-11 15:09 | disposition home or self-care (01) ==
LOC: ANHLAB 15:10
PROVIDERS: PCP Family Medicine; Visit Provider Family Medicine
DX: J06.9 Acute upper respiratory infection, unspecified (principal); Z20.822 Contact with and (suspected) exposure to COVID-19
CPT/HCPCS: 87637

== ENCOUNTER 2024-09-04 15:16 | Outpatient (RCR) | payer BC, OTHER, SELFPAY ==
[2024-09-04 15:21] VITALS: BMI 54.2
[2024-09-04 15:42] VITALS: BMI 54.2
== END 2024-11-19 10:14 | disposition home or self-care (01) ==
LOC: ANHDMC 15:16
PROVIDERS: PCP Family Medicine; Visit Provider Student in an Organized Health Care Education/Training Program
DX: E11.65 Type 2 diabetes mellitus with hyperglycemia (principal); Z71.3 Dietary counseling and surveillance
CPT/HCPCS: 97802